=== PATIENT | male | born 1955 | race Caucasian/White ===

== ENCOUNTER → 2018-11-21 09:26 | Outpatient (CLI) | payer OTHER, SELFPAY ==
--- NOTE | 2018-11-21 | DI.RAD.S_ITS ---
PROCEDURE: FL UPPER GI W AIR INDICATIONS: DYSPHAGIA COMPARISON: None. FINDINGS: KUB: Preprocedural baseball glove stuffer film demonstrates a normal bowel gas pattern. No suspicious abdominal calcifications. Visualized solid organ contours appear normal. Bony structures appear unremarkable. Esophagus: Esophageal mucosa is normal on air-contrast views. On single-contrast views, there is normal esophageal peristalsis. No strictures, extrinsic mass effects, or diverticula. There is a mild to moderate sized hiatal hernia with moderate spontaneous and elicited gastroesophageal reflux. Stomach: The stomach is normally distensible, with normal rugal fold thickness. No mucosal masses or ulcers. Pylorus and duodenal bulb appear normal in morphology. Duodenal folds are normal in thickness as well. IMPRESSION: Mild to moderate sliding-type hiatal hernia with moderate spontaneous and elicited gastroesophageal reflux almost to the glottic level episodically. No erosion or stricture is found, no mass lesion is suspected. Dictated by: Taco Kumar M.D. on 11/21/2018 at 13:14 Approved by: Taco Kumar M.D. on 11/21/2018 at 13:15
== END ==
PROVIDERS: Family Provider Family Medicine; PCP Family Medicine; Visit Provider Family Medicine
DX: R13.10 Dysphagia, unspecified (principal); K44.9 Diaphragmatic hernia without obstruction or gangrene; K21.9 Gastro-esophageal reflux disease without esophagitis
CPT/HCPCS: 74247

== ENCOUNTER → 2019-09-07 08:53 | Outpatient (CLI) | payer OTHER, SELFPAY ==
[2019-09-08 18:43] LABS: COVID19 Sendout Not Detected (Not Detect)
== END ==
PROVIDERS: Family Provider Family Medicine; PCP Family Medicine; Visit Provider Physician Assistant
DX: Z11.59 Encounter for screening for other viral diseases (principal)
CPT/HCPCS: 87635

== ENCOUNTER 2019-09-10 11:55 | Day surgery (SDC) | payer OTHER, SELFPAY ==
--- NOTE | 2019-09-10 12:10 | P.HP_ITS ---
History of Present Illness History of Present Illness Date Patient Seen: 09/10/19 Time Patient Seen: 13:51 Chief complaint: SDC Narrative: 63 Years Old Male comes in today for consideration of a screening colonoscopy. Had a sigmoidoscopy in 2010 in [place], records unavailable at time of dictation, reportedly had polyps. His last colonoscopy in 2014 was significant for a hyperplastic polyp at 15 cm. There have been no lower GI symptoms suggesting disease such as change in bowel habits, bleeding, abdominal pain or anemia. There's been no family history of colon cancer or colon polyps. Overall health issues have been stable, including no major cardiac events for at least 6 weeks. Current Medications: 1) Omeprazole 20 Mg Oral Capsule Delayed Release (Omeprazole) .... Take one capsule once a day 30 minutes before first meal of the day, for stomach acid suppression. 2) Lisinopril-Hydrochlorothiazide 10-12.5 Mg Oral Tablet (Lisinopril- Hydrochlorothiazide) .... Take one by mouth every day, for blood pressure control. 3) Atorvastatin Calcium 10 Mg Oral Tablet (Atorvastatin Calcium) .... Take 1 tablet by mouth daily for cholesterol control 4) Lumigan 0.01% Bobbi (Bimatoprost) .... 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 What Job Titles Mean Education: College graduate Life Changes (2013) - Father 08/15/13 Meds Home Medications and Allergies Home Medications Medication Instructions Recorded Confirmed Type [RX FOR BP THIS AM] #0 06/10/12 11/10/18 History atorvastatin PO 11/10/18 11/10/18 History lisinopril PO 11/10/18 11/10/18 History Allergies Allergy/AdvReac Type Severity Reaction Status Date / Time PCN (PENICILLIN) Allergy Intermediate Uncoded 09/07/19 09:22 Review of Systems Review of Systems ROS: Yes All systems reviewed with the patient and are negative except as otherwise documented Exam Narrative Exam Narrative: GENERAL: Alert and oriented, appearing stated age and in no acute distress. HEENT: Head normocephalic/atraumatic. Neck soft and supple, no lymphadenopathy. LUNGS: Clear to ausculation bilaterally, no wheezes, rhonchi or rales. CV: Normal S1 and S2 with regular rate and rhythm, no audible murmurs, rubs or gallops. ABDOMEN: Soft, non-tender, non-distended, no organomegaly. Positive bowel sounds. EXTREMITIES: No clubbing, cyanosis, or edema. NEURO: Cranial nerves II through XII grossly intact, no focal deficits. PSYCH: Alert and oriented x 3. SKIN: No concerning lesions. Assessment & Plan Assessment & Plan narrative: 1. History of colon polyps 2. Screening for colon cancer Plan for colonoscopy. The nature and character of the procedure as well as anticipated results were discussed. The possibility of not completing the procedure was also discussed. Possible complications including aspiration pneu monia, bleeding, perforation and reaction to medications either for sedation or preparation and missed lesions were discussed. Questions were answered and proceeding to the colonoscopy was elected. Informed consent signed. I sincerely appreciate the referral allowing me to participate in this patient's care. Please contact me with any questions or concerns.
--- NOTE | 2019-09-10 12:14 | P.OP.ENDO_ITS ---
Operative Date/Time/Diagnoses Date of procedure: 09/10/19 Pre-op diagnosis: 1. History of colon polyps 2. Screening for colon cancer Post-op diagnosis: other (Normal colonoscopy) Procedure & Clinicians Study performed: Colonoscopy Same procedure as scheduled: Yes Indications: 1. History of colon polyps 2. Screening for colon cancer Surgeon: Casandra Dodge Procedure Notes SCOAP/Timeout: 13:57 Procedure in detail: ENDOSCOPIST: Casandra Dodge MD Sedation RN: Mar Mitchell RN Sedation start time: 13:58 Sedation end time: 14:17 PROCEDURE: Colonoscopy INDICATIONS: 1. History of colon polyps 2. Screening for colon cancer MEDICATION: Levsin 0.125 mg sublingual, incremental doses of Versed and fentanyl until appropriate level sedation achieved. ASA CLASS: 2 CECAL WITHDRAWAL TIME: 9 minutes COMPLICATIONS: None. EXTENT OF PROCEDURE: Cecum. QUALITY OF PREP: Good with portions of liquid stool. PROCEDURE: Prior to insertion of the colonoscope, a digital rectal examination was accomplished with circumferential palpation of the distal rectal mucosa without significant findings being noted. The high-definition colonoscope was passed into the rectum in the usual fashion and advanced over to the cecum without d ifficulty. The ileocecal valve, appendiceal stoma, and medial wall all could be inspected and no abnormalities were seen. ASCENDING COLON: As the colonoscope was withdrawn, care was taken to expose and inspect the haustral folds and no abnormalities were seen. HEPATIC FLEXURE: Normal no polyps, diverticula or other abnormalities. TRANSVERSE COLON: Normal no polyps, diverticula or other abnormalities. DESCENDING COLON: Normal no polyps, diverticula or other abnormalities. SIGMOID COLON: Normal no polyps, diverticula or other abnormalities. RECTUM: Normal. J maneuver was produced. There was no significant perianal disease. The J maneuver was broken. The remainder of the rectum was inspected and there was no external hemorrhoid disease. The scope was withdrawn. IMPRESSION: 1. Normal colonoscopy PLAN: 1. Repeat colonoscopy in 10 years. The possibility of a missed lesion including a malignancy has been discussed with the patient previously. Potential alarm symptoms have been discussed and should be reported immediately. Complications: none Post-procedure Recommendations: Colonscopy in 10 years Follow up: as needed Disposition: PACU
[2019-09-10] MEDS: HYOSCYAMINE 0.125 MG TABLET PO (12:58)
[2019-09-10] MEDS: LACTATED RINGERS 1,000 ML 200 ML IV (12:58)
[2019-09-10 13:04] VITALS: BP 144/98; PULSE 85; RESP 16; TEMP 36.4; O2SAT 95; BMI 31.5
[2019-09-10] MEDS: MIDAZOLAM 5 MG/5 ML VIAL IV (14:18)
[2019-09-10] MEDS: fentaNYL 250 MCG/5 ML INJ IV (14:19)
[2019-09-10 14:21] VITALS: BP 124/76; PULSE 78; RESP 16; TEMP 36.2; O2SAT 95
[2019-09-10 14:25] VITALS: BP 110/74; PULSE 86; RESP 16; O2SAT 94
[2019-09-10 14:32] VITALS: BP 124/79; PULSE 83; RESP 10; O2SAT 95
[2019-09-10 14:54] VITALS: BP 114/80; PULSE 72; RESP 20; TEMP 36.2; O2SAT 97
== END 2019-09-10 14:55 | disposition home or self-care (01) ==
PROVIDERS: PCP Family Medicine; Referring Provider Student in an Organized Health Care Education/Training Program; Visit Provider Student in an Organized Health Care Education/Training Program
PROC: 0DJD8ZZ Inspection of Lower Intestinal Tract, Via Natural or Artificial Opening Endoscopic (ICD-10-PCS; CPT 45378; principal; 2019-09-10 13:45)
DX: Z12.11 Encounter for screening for malignant neoplasm of colon (principal); Z86.010 Personal history of colon polyps
CPT/HCPCS: 45378; J2250; J3010

== ENCOUNTER → 2021-11-19 07:58 | Outpatient (CLI) | payer MEDICARE, SELFPAY ==
--- NOTE | 2021-11-19 | DI.MRI.S_ITS ---
PROCEDURE: MR KNEE RT WO CON INDICATIONS: Residual foreign body in soft tissue TECHNIQUE: Noncontrast sagittal PD fast spin echo and T2 fast spin echo with fat saturation, sagittal 3-D FLASH with fat saturation; coronal T1 spin echo and PD fast spin echo with fat saturation, and axial PD fast spin echo with fat saturation through the knee. COMPARISON: [facility] [place], CR, XR KNEE 4+ VIEWS RIGHT, 11/11/2021, 15:02. FINDINGS: Image quality: Excellent. Menisci: The medial and lateral menisci demonstrate normal morphology and internal signal. The meniscal root ligaments appear intact. Cruciate ligaments: The anterior and posterior cruciate ligaments appear intact. Medial structures: Proximal medial collateral ligament is thickened with adjacent soft tissue edema at its femoral insertion. The posterior oblique ligament, semimembranosus tendon insertions, oblique popliteal ligament, and meniscocapsular junction appear intact. Visualized portions of the pes anserinus tendons appear normal. No abnormal bursal fluid. Lateral structures: The lateral collateral ligament, long and short heads of the biceps femoris tendon appear intact. The popliteus tendon appears normal; the popliteofibular ligament appears intact. Iliotibial band appears normal. Anterior structures: There is distal quadriceps tendinosis at its superior patellar insertion. Patellar tendon is grossly intact. Nonspecific subcutaneous soft tissue edema and fluid along anterior aspect of patella and patella tendon is seen. No fluid distending prepatellar bursa is noted. No discrete soft tissue mass or susceptibility artifacts are seen. Patellar alignment is normal. No femoral trochlear dysplasia or ventral trochlear prominence. No edema in the infrapatellar fat pad. Bones and cartilage: No bone marrow contusions or fractures. Mild tricompartmental osteoarthritis and low-grade chondromalacia is seen more notably in lateral patellofemoral compartment. Joint space: There is small joint effusion. There is fluid extending along proximal portion of medial head gastrocnemius muscle which may represent a small ruptured Melvin cyst. Normal appearing synovial plicae are incidentally noted. IMPRESSION: 1. Nonspecific subcutaneous soft tissue edema and swelling along anterior lateral aspect of patella and patella tendon. No discrete soft tissue mass or definite foreign body seen. 2. Mild tricompartmental osteoarthritis and chondromalacia most notably in lateral femoral tibial compartment. No fracture or dislocation. 3. Distal quadriceps tendinosis at its superior patellar insertion. Patellar tendon is intact. 4. Cruciate ligaments are intact. Low-grade proximal MCL sprain/partial-thickness tear. 5. No evidence of focal meniscal tear. Dictated by: Charly Coles M.D. on 11/19/2021 at 12:23 Approved by: Charly Coles M.D. on 11/19/2021 at 12:28
== END ==
PROVIDERS: PCP Family Medicine; Referring Provider Orthopaedic Surgery Foot and Ankle Surgery; Visit Provider Orthopaedic Surgery Foot and Ankle Surgery
DX: M17.11 Unilateral primary osteoarthritis, right knee (principal); M94.261 Chondromalacia, right knee; M79.5 Residual foreign body in soft tissue
CPT/HCPCS: 73721

== ENCOUNTER 2023-11-16 02:41 | Emergency (ER) | payer MEDICARE, SELFPAY ==
--- NOTE | 2023-11-16 02:47 | ED_ITS ---
HPI - Head Injury General Chief complaint: Head Injury Stated complaint: hit head on bookcase Time Seen by Provider: 11/16/23 02:42 Source: patient and old records reviewed Mode of arrival: Ambulatory Limitations: no limitations History of Present Illness HPI Narrative: 68-year-old male who presents with complaint of lacerations to the forehead and scalp. Patient states he was sleeping woke up causes dog needed to go out he got up and was headed to let his dog out and accidentally ran into his book shelf causing lacerations to his scalp and forehead. States he did not have any loss of consciousness. States it did bleed at home. Was able to control it with a towel. Denies any other injuries, no neck pain, no other nausea or vomiting no dizziness. Patient states no anticoagulants. He does take lisino pril daily states that is his only medication. Reported allergy to penicillin. Patient states tetanus is up-to-date. Related Data Home Medications Medication Instructions Recorded Confirmed [RX FOR BP THIS AM] ##0 06/10/12 11/10/18 atorvastatin PO 11/10/18 11/10/18 lisinopril PO 11/10/18 11/10/18 Allergies Allergy/AdvReac Type Severity Reaction Status Date / Time PCN (PENICILLIN) Allergy Intermediate Uncoded 09/07/19 09:22 Review of Systems Review of Systems ROS Unobtainable: All systems reviewed & are unremarkable except as noted in HPI and below Patient History Social History household members: spouse Smoking Status: Never smoker alcohol intake: current Smoking Status: Never smoker alcohol intake frequency: holidays/special occasions only Substance Use Type: does not use Exam Narrative Exam Narrative: GEN: Patient appears in mild distress. HEAD: N patient has a vertical laceration just above the eyebrows mid forehead that is about 2.5 cm in length, patient also has a horizontal laceration over the scalp that is about 2.5 cm, spacing is consistent with hitting a 90 degree angle., no raccoon/Bolden sign. NECK: Nontender, painless range of motion, trachea midline Negative Nexus criteria, no midline line tenderness, distracting injury, altered mental status, neuro deficit, recent EtOH. EYES: PERRLA, EOMI ENT: External inspection normal, trachea is midline, TM's are normal no hemotypanum, Nares are clear, no septal hematoma, no dental or oral injury, airway is normal and with normal occlusion, No bony tenderness RESP: Chest is nontender and has symmetric movement, no ecchymosis, breath sounds are normal no crackles, wheezes or rales CVS: Heart sounds are normal, no murmur noted, No JVD. ABG/GI: Nontender, soft, normal bowel sounds, no distention, no organomegaly NEURO: Oriented AOx3, neuro is grossly intact, sensation and motor is normal all 4 extremities moving, cranial nerves II through XII are intact, GCS is 15 PSYCH: Normal mood and affect SKIN: Intact, warm and dry, no crepitus and without decubitus BACK: No CVA tenderness, no vertebral tenderness, no step-off's, no crepitus EXT: Atraumatic, normal range of motion of extremities. Normal gait. Initial Vital Signs Initial Vital Signs: Vital Signs Temperature 97.6 F 11/16/23 02:53 Pulse Rate 75 11/16/23 02:53 Respiratory Rate 17 11/16/23 02:53 Blood Pressure 141/87 H 11/16/23 02:53 Pulse Oximetry 97 11/16/23 02:53 Oxygen Delivery Method Room Air 11/16/23 02:53 Procedures Laceration Repair Laceration 1: Site: scalp Side (If applicable): right Size (cm): 4.5 Description: irregular Depth: simple, single layer and involves muscle layer Local Anesthetic: lidocaine 1% Amount of anesthesia used (mL): 5 Pre-repair: wound explored, irrigated extensively and deep structures intact Skin layer closed with: vicryl Skin layer suture size: 5-0 Number of sutures: 8 Technique: simple, interrupted Laceration 2: Site: face (Forehead) Side (If applicable): right Size (cm): 3.9 Description: linear Depth: simple, single layer Local Anesthetic: lidocaine 1% Amount of anesthesia used (mL): 4 Pre-repair: wound explored, irrigated extensively and deep structures intact Skin layer closed with: vicryl Skin layer suture size: 5-0 Number of sutures: 7 Technique: simple, interrupted Scores Stanley CT Head Rule Age <16 years old: No Patient on blood thinners: No Seizure after injury: No Exclusion: Patient NOT Excluded, Proceed to next steps GCS < 15 at 2 hr post trauma: No Suspected open or depressed skull fracture: No Any sign of basilar skull fracture (hemotympanum, raccoon eyes, Bolden's sign, CSF sylvia-/rhinorrhea): No Two or more episodes of vomiting: No Age greater or equal to 65 years: Yes Retrograde amnesia to the event greater or equal to 30 min: No Dangerous Mechanism (pedestrian vs. mv, occupant ejected from mv, fall from >3 ft or > 5 stairs): No Recommendation: Consider CT. The Stanley Head CT Rule cannot rule out need for Imaging. GCS Myrtle coma scale eye opening: Spontaneous [place] coma scale verbal response: Orientated [place] coma scale motor response: Obey commands [place] coma scale total score: 15 Course Orders Ordered: ED Orders 11/16/23 03:38 CT cervical spine wo con Stat CT head/brain wo con Stat Discontinued Medications Acetaminophen (Acetaminophen 325 Mg Tablet) 975 mg PO NOW ONE Stop: 11/16/23 03:40 Last Admin: 11/16/23 03:58 Dose: 975 mg Documented By: MINYD Diphtheria/Tetanus/Acell Pertussis (Tet,Diph,Pertuss(Acell),Vac/Pf 0.5 Ml Syringe) 0.5 ml IM .ONCE ONE Stop: 11/16/23 03:40 Last Admin: 11/16/23 03:58 Dose: 0.5 ml Documented By: MINDY Lidocaine HCl (Lidocaine 2% Inj Sdv 5ml) 5 ml INJ INTRA-OP ONE Stop: 11/16/23 02:49 Last Admin: 11/16/23 02:53 Dose: 5 ml Documented By: AB Vital Signs Vital signs: Vital Signs - 8 hr 11/16/23 02:53 11/16/23 04:46 Temperature 97.6 F Pulse Rate 75 70 Respiratory Rate 17 17 Blood Pressure 141/87 H 134/84 Pulse Oximetry 97 96 Oxygen Delivery Method Room Air Room Air MDM - Head Injury MDM Narrative Medical decision making narrative: 68-year-old male who was headed out the door to let his dog out when he ran into a bookcase causing laceration of his forehead and scalp. No loss of consciousness patient is not anticoagulated. Patient's laceration of the upper scalp is quite deep he describes quite a bit of pain so head CT and CT C-spine were ordered. Discussed return precautions. Lacerations were repaired patient tolerated well. Tetanus was updated. Head CT shows no acute intracranial abnormality, right frontal hematoma without calvarial fracture. CT cervical spine shows multilevel spondylitic changes cervical spine without acute traumatic injury. Discharge Plan Departure Patient Disposition: Home Clinical Impression: Laceration of scalp, Laceration of forehead Instructions: DI for Laceration Repair -- Simple, DI for Closed Head Injury Activity Restrictions/Additional Instructions: Follow up for recheck in the next week as needed, you have absorbable sutures so they should be dissolved over the next week. You can take acetaminophen up to a 1000 mg every 6 hours and/or ibuprofen up to 600 mg every 6 hours as needed for pain. Wound Care: Keep wound(s) clean and dry. Wash daily with soap and water only. Do not use over the counter products (alcohol or peroxide)on the wounds unless instructed by a physician. If wound condition worsens (increased/expanding redness, developing fluid blisters, or worsening pain), either contact your doctor for an urgent re- assessment , or return to the Emergency Department. Return to the Emergency Department for any new or worsening symptoms. Return if fever greater than 100.4 Fahrenheit, increased swelling, increasing pain or worsening symptoms such as increased discharge or spreading redness, severe headaches, sudden vision changes, new numbness tingling or weakness, confusion, any nausea or vomiting, dizziness or other new or concerning changes. Prescriptions: No Action atorvastatin PO lisinopril PO [RX FOR BP THIS AM] Qty: 0 Referrals: Allie Forrester MD [Primary Care Provider] - Stand Alone Forms: Patient Portal/API
[2023-11-16 02:53] VITALS: BP 141/87; PULSE 75; RESP 17; TEMP 36.4; O2SAT 97; BMI 33.0
[2023-11-16] MEDS: LIDOCAINE 2% INJ SDV 5ML 5 ML INJ (02:53)
--- NOTE | 2023-11-16 03:38 | DI.CT.S_ITS ---
PROCEDURE: CT CERVICAL SPINE WO CON INDICATIONS: hit bookcase, scalp and forehead lac TECHNIQUE: Noncontrast 3 mm thick sections acquired from the skull base to the T4 level. Sagittal and coronal reformats were then constructed. For radiation dose reduction, the following was used: automated exposure control, adjustment of mA and/or kV according to patient size. COMPARISON: None. FINDINGS: Image quality: Excellent. Bones: No fractures or dislocations. There is loss of disc height and degenerative endplate changes. Broad-based dorsal disc osteophyte complex formation and bilateral uncovertebral hypertrophic changes are noted throughout cervical spine causing [id number] central canal stenosis and bilateral neural foraminal narrowing more notably at C5-6 and C6-7 levels. Visualized superior ribs are intact. Soft tissues: Prevertebral soft tissues are normal in thickness. No paravertebral hematomas. No apical pneumothoraces. IMPRESSION: 1. No acute cervical spine fracture or dislocation. 2. Degenerative disc disease throughout cervical spine more notably at C5-6 and C6-7 levels as above. Dictated by: Charly Coles M.D. on 11/16/2023 at 8:20 Approved by: Charly Coles M.D. on 11/16/2023 at 8:21
--- NOTE | 2023-11-16 03:38 | DI.CT.S_ITS ---
PROCEDURE: CT HEAD/BRAIN WO CON INDICATIONS: hit bookcase, scalp and forehead lac TECHNIQUE: Noncontrast 4.5 mm thick angled axial sections acquired from the foramen magnum to the vertex, with coronal and sagittal reformats. For radiation dose reduction, the following was used: automated exposure control, adjustment of mA and/or kV according to patient size. COMPARISON: None. FINDINGS: Image quality: Diagnostic. CSF spaces: Basal cisterns are patent. No extra-axial fluid collections. The ventricles are symmetric in size and shape. Brain: No intracranial bleeds or masses. There is cerebral volume loss for age, with resultant ventricular and sulcal prominence. There are periventricular and deep white matter chronic small vessel ischemic changes. There is intracranial internal carotid artery atherosclerosis. Skull and face: Right frontal scalp hematoma is noted. No gross acute skull fracture. Sinuses: Mucosal thickening in right maxillary sinus is seen. Bilateral mastoid air cells are well aerated . IMPRESSION: 1. No CT evidence of acute intracranial pathology. 2. Age related volume loss and mild white matter small vessel chronic ischemic changes. 3. Right frontal scalp hematoma and swelling. No gross acute skull fracture. Dictated by: Charly Coles M.D. on 11/16/2023 at 8:21 Approved by: Charly Coles M.D. on 11/16/2023 at 8:23
[2023-11-16] MEDS: ACETAMINOPHEN 325 MG TABLET 975 MG PO (03:58)
[2023-11-16] MEDS: TET,DIPH,PERTUSS(ACELL),VAC/PF 0.5 ML SYRINGE IM (03:58)
[2023-11-16 04:46] VITALS: BP 134/84; PULSE 70; RESP 17; O2SAT 96
== END 2023-11-16 04:47 | disposition home or self-care (01) ==
PROVIDERS: Emergency Provider Emergency Medicine; PCP Family Medicine
DX: S01.01XA Laceration without foreign body of scalp, initial encounter (principal); S01.81XA Laceration without foreign body of other part of head, initial encounter; W22.03XA Walked into furniture, initial encounter; Z23 Encounter for immunization
CPT/HCPCS: 12002; 12013; 70450; 72125; 90471; 99284; 90715